=== PATIENT | female | born 1980 | race American Indian/Alaskan Native ===

== ENCOUNTER 2020-08-29 06:01 | Day surgery (SDC) | payer BC, MEDICAID ==
--- NOTE | 2020-08-27 07:46 | History and Physical Report ---
History of Present Illness Date of examination: 08/25/20 History of present illness: Patient has been reassessed/reevaluated. H&P has been reviewed. No interval changes. Patient desires sterilization. Discussed with various methods of contraceptives including abstinence, barrier and hormonal. Discussed oral, implantable, dermal, injectable, intravaginal and intrauterine methods. Patient declined temporary contraceptives. Discuss the permanency of sterilization. High risk of regret and 0.5 to 1% risk of failure. Questions answered Patient understands and desires to proceed. Vital Signs: Patient Profile: 40 Years Old Female Height: 65.6 inches (166.62 cm) Weight: 146 pounds BMI: 23.85 Temp: 97.9 degrees F BP sittin / 80 (left arm) Current Method of Contraception: IUD Date of Last Pap Smear: 07/29/2020 Past History : 3 Term Births: 2 Premature Births: 0 Living Children: 2 Para: 2 Mult. Births: 0 Prev : 0 Aborta: 1 Elect. Ab: 0 Spont. 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 of genital herpes: no Partner hx. 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 Risk Factors: Smoked Tobacco Use: Former smoker Cigarettes: Yes Year quit: 2005 Years Since Last Quit: 16 Smokeless Tobacco Use: Never Passive smoke exposure: no Drug use: no HIV high-risk behavior: no Caffeine use: 2 drinks per day Alcohol use: yes Type: occ Exercise: no Seatbelt use: 100 % PAP Smear History: Date of Last PAP Smear: 07/29/2020 Review of Systems General Denies fever, chills, sweats, anorexia, fatigue, weakness, malaise, weight loss and sleep disorder. Denies vaginal discharge, incontinence, dysuria, hematuria, urinary frequency, amenorrhea, menorrhagia, abnormal vaginal bleeding, pelvic pain, genital sores, decreased libido, painful periods, painful sex, urinary urgency, hot flashes, vaginal dryness, vaginal itching and vaginal odor. CV Denies chest pains, palpitations, syncope, dyspnea on exertion, orthopnea, PND and peripheral edema. Resp Denies cough, dyspnea at rest, excessive sputum, hemoptysis, wheezing and pleurisy. GI Denies nausea, vomiting, diarrhea, constipation, change in bowel habits, abdominal pain, melena, hematochezia, jaundice, gas/bloating, indigestion/heartburn, dysphagia and odynophagia. Breast Denies left breast lump, right breast lump, nipple discharge, bloody discharge from nipple, breast pain, abnormal mammogram and breast enlargement. Psych Denies depression, anxiety, irritability and mood swings. Past History Past Medical History: No medical history Past Surgical History: No surgical history Social history: full code, other (SEE HPI) Family history: other (SEE HPI) Medications and Allergies Allergies Allergy/AdvReac Type Severity Reaction Status Date / Time No Known Allergies Allergy Verified 08/27/20 18:01 Home Medications Medication Instructions Recorded Confirmed Last Taken Type Loratadine [Allergy Relief] 10 mg PO DAILY 08/27/20 08/27/20 Unknown History predniSONE [Deltasone] 10 mg PO QWEEK 08/27/20 08/27/20 Unknown History Review of Systems Constitutional: other (SEE HPI) Exam - Physical Exam Narrative exam: HEENT: normocephalic, no lesions or deformities Skin no ulcers, xanthomas Chest: respiratory effort normal, clear to auscultation CV: regular, normal S1-S2, no murmur, no rub, no gallop Abdomen: soft, non-tender, no masses, bowel sounds normal Neuro: no gross anomalities Extremities: no clubbing, cyanosis, or edema 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 No evidence of cystocele or rectocele. Cervix: normal appearance, no lesions, no discharge IUD string seen Uterus: normal position, midline, mobile Adnexae: no masses or tenderness Rectovaginal: exam defered Assessment and Plan - Patient Problems (1) Encounter for female sterilization procedure Current Visit: No Status: Acute Plan to address problem: Patient desires sterilization.Discuss the permanency of sterilization. High risk of regret and 0.5 to 1% risk of failure. Discussed options of tubal blockage and salpingectomy and it's possible benefit of preventing ovarian cancer and increased risks of bleeding during the procedure. Discuss the risks of the surgery including infection, bleeding possibly heavy enough to require a blood transfusion, possilble damage to bowel, bladder or ureter. Patient understands and desires to proceed with salpingectomy
[2020-08-29] MEDS ORDERED: HYDROmorphone 1 MG/1 ML INJ ONE (07:14)
[2020-08-29] MEDS ORDERED: propofoL 200 MG/20 ML VIAL IV ONE (07:15)
[2020-08-29] MEDS ORDERED: ROCURONIUM 50 MG/5 ML INJ IV ONE (07:15)
[2020-08-29] MEDS ORDERED: LIDOCAINE MPF (2%) 20 MG/1 ML VIAL 5 ML ONE (07:15)
[2020-08-29] MEDS ORDERED: LACTATED RINGERS 1,000 ML ONE ×2 (07:16→08:33)
[2020-08-29] MEDS ORDERED: ONDANSETRON 4 MG/2 ML INJ IV PRN (07:17)
[2020-08-29] MEDS ORDERED: HYDROmorphone 1 MG/1 ML INJ IV PRN ×2 (07:17)
--- NOTE | 2020-08-29 07:17 | Anesthesia Day of Surgery ---
Anesthesia Day of Surgery - Day of Surgery Patient Examined: Yes Patient H&P Reviewed: Yes Patient is NPO: Yes
--- NOTE | 2020-08-29 07:19 | Anesthesia Consultation ---
Anesthesia Consult and Med Hx Date of service: 08/29/20 - Airway Anesthetic Teeth Evaluation: Chipped, Crowns ROM Head & Neck: Adequate Mental/Hyoid Distance: Adequate Mallampati Class: Class I Intubation Access Assessment: Good - Pre-Operative Health Status ASA Pre-Surgery Classification: ASA2 Proposed Anesthetic Plan: General - Pulmonary Hx Smoking: Yes (Hookah) Hx Asthma: No COPD: No Hx Pneumonia: No - Cardiovascular System Hx Hypertension: Yes (with ) Hx Cardia Arrhythmia: Yes (Occasional papitations) - Central Nervous System Hx Neuromuscular Disorder: Yes (Eczema) Hx Seizures: No Hx Psychiatric Problems: No - Endocrine Hx End Stage Renal Disease: No - Other Systems Hx Alcohol Use: Yes (Occas) Hx Cancer: No
[2020-08-29] MEDS ORDERED: BUPIVACAINE/PF (0.5%) 5 MG/1 ML 30 ML VIAL INFILTRATI ONE ×2 (07:22→09:12)
[2020-08-29] MEDS ORDERED: LACTATED RINGERS 1,000 ML IV SCH (07:30)
[2020-08-29] MEDS ORDERED: KETOROLAC 30 MG/1 ML INJ ONE (07:33)
[2020-08-29] MEDS ORDERED: MIDAZOLAM 2 MG/2 ML INJ ONE (07:39)
[2020-08-29] MEDS ORDERED: ONDANSETRON 4 MG/2 ML INJ ONE ×2 (07:39→07:40)
[2020-08-29] MEDS ORDERED: dexAMETHasone 20 MG/5 ML VIAL ONE ×2 (07:39→07:40)
[2020-08-29] MEDS ORDERED: MIDAZOLAM 2 MG/2 ML INJ IV NR (08:00)
[2020-08-29] MEDS ORDERED: GLYCOPYRROLATE 0.4 MG/2 ML INJ ONE (08:15)
[2020-08-29] MEDS ORDERED: NEOSTIGMINE 10MG/10 ML INJ MDV ONE (08:15)
--- NOTE | 2020-08-29 08:51 | Operative Report ---
Operative Report Operative Report: Date of procedure: August 29, 2020 Pre-operative diagnosis: Patient desires permanent sterilization Post-operative diagnosis: Same Procedure name(s): Laparoscopic bilateral salpingectomy and IUD removal Surgeon: Bharat Youssef MD Department Head [employer]: General Anesthesia: General endotracheal EBL: Minimal Complications: None Findings: Patient with uterus approximately 8 weeks in size with normal fallopian tubes bilaterally Specimen(s): Bilateral fallopian tubes Patient was brought in the operating room. General anesthesia was induced without difficulty. She was placed in dorsal lithotomy position. Prepped and draped in usual sterile manner. Her urinary bladder with was emptied with a red rubber catheter. Speculum placed in her vagina the strings were ParaGard were then grasped with Allis clamp and easily removed from uterus intact and then discarded. [email or web address] uterine manipulator was placed for uterine manipulation without difficulty. Attention was then switched to the patient's abdomen. An infra-umbilical incision was made with a scalpel. This incision was spread with a hemostat. A 5 mm trocar was placed in this incision while lifting high the abdominal wall. Intra-abdominal presence was verified directly with the laparoscope. The patient was then insufflated to approximately 3 L of CO2 gas. The patient's findings as noted above. An accessory puncture was made suprapubically. The 8 mm trocar was placed through this incision under direct visualization with no evidence of internal organ damage. Each of the fallopian tube were identified by its fimbriated end. Starting with the right fallopian tube approximately 1 to 2 cm from the cornea LigaSure device was used to cross sectional cut the tube. From this point the ligature device was used to cauterize and cut the mesosalpinx until the fimbriated end was reached detaching the tube. The fallopian tube was then removed through the accessory port attention was then switched to the contralateral tube. Same procedure was performed detaching that tube and removed it through the accessory port. The remaining stump was inspected and found to be hemostatic. At this time all instruments were removed. The patient was de-insufflated. The skin incisions were closed subcuticularly with 4-0 Vicryl. Marcaine was injected into the surgical incisions, for postoperative pain relief. The patient tolerated procedure well. She was awakened in the operating room and accompanied to the recovery room in good condition.
--- NOTE | 2020-08-29 08:54 | Short Stay Summary ---
Short Stay Documentation Date of service: 08/29/20 - History H&P: dictated Past Medical History: No medical history Past Surgical History: No surgical history Social history: full code, other (SEE HPI) - Allergies and Medications Current Medications: Allergies No Known Allergies Allergy (Verified 08/27/20 18:01) Home Medications Medication Instructions Recorded Confirmed Last Taken Type Loratadine [Allergy Relief] 10 mg PO DAILY 08/27/20 08/29/20 08/22/20 09:00 History predniSONE [Deltasone] 10 mg PO QWEEK 08/27/20 08/29/20 08/25/20 09:00 History oxyCODONE /ACETAMINOPHEN [Percocet 1 - 2 tab PO Q6HR PRN #10 tablet 08/29/20 Unknown Rx 5/325 mg] Active Medications Hydromorphone HCl (Hydromorphone 1 Mg/1 Ml Inj) 0.25 mg IV Q10MIN PRN PRN Reason: Pain, Moderate (4-6) Stop: 08/29/20 23:00 Hydromorphone HCl (Hydromorphone 1 Mg/1 Ml Inj) 0.5 mg IV Q10MIN PRN PRN Reason: Pain , Severe (7-10) Stop: 08/29/20 23:00 Lactated Ringer's (Lactated Ringers) 1,000 mls @ 125 mls/hr IV DIRECT AMMY Midazolam HCl (Midazolam 2 Mg/2 Ml Inj) 2 mg IV PREOP NR Stop: 08/29/20 23:59 Ondansetron HCl (Ondansetron 4 Mg/2 Ml Inj) 4 mg IV ONCE PRN PRN Reason: Nausea And Vomiting Stop: 08/29/20 16:00 - Physical exam General appearance: no acute distress HEENT: Atraumatic Lungs: Normal air movement Breasts: deferred Heart: Regular rate Gastrointestinal: normoactive bowel sounds, tenderness, distended (Appropriate. Appropriate post laparoscopy) Female Genitourinary: normal Rectal Exam: deferred Extremities: no ischemia - Brief post op/procedure progress note Date of procedure: 08/29/20 (See dictated operative note for details) Condition: stable - Hospital course Hospital course: Patient was admitted underwent the above him procedure without any complications. Patient will be discharged with follow-up in office in 1-2 weeks for postop check. - Disposition Condition at discharge: Good Disposition: DC-01 TO HOME OR SELFCARE - Discharge Diagnoses (1) Encounter for female sterilization procedure Status: Acute Short Stay Discharge Plan Activity: advance as tolerated Diet: regular Additional Instructions: Patient to call office for any fever, chills, nausea, vomiting or pain not controlled by pain medication. Follow up with: GEOVANNY ROTH DO [Primary Care Provider] - 7 Days Prescriptions: oxyCODONE /ACETAMINOPHEN [Percocet 5/325 mg] 1 - 2 tab PO Q6HR PRN #10 tablet PRN Reason: Pain
--- NOTE | 2020-08-29 09:08 | Post Anesthesia Evaluation ---
- Post Anesthesia Evaluation Patient Participated: Yes Airway Patent: Yes Stable Respiratory Function: Yes Nausea/Vomiting: No Temp > 96.8F: Yes Pain Manageable: Yes Adequeate Hydration: Yes Anesthesia Complications: No Block Receding Appropriately: Not Applicable Patient on Ventilator: No
[2020-08-29] MEDS ORDERED: oxyCODONE /ACETAMINOPHEN 5-325MG TAB PO NR (09:30)
[2020-08-29 09:57] VITALS: BP 125/72
== END 2020-08-29 10:10 | disposition home or self-care (01) ==
LOC: OR 06:01
PROVIDERS: ATTEND Obstetrics & Gynecology
DX: Z30.2 Encounter for sterilization (principal); Z30.432 Encounter for removal of intrauterine contraceptive device; F17.210 Nicotine dependence, cigarettes, uncomplicated; I42.9 Cardiomyopathy, unspecified; I10 Essential (primary) hypertension; K21.9 Gastro-esophageal reflux disease without esophagitis; Z72.89 Other problems related to lifestyle; Z79.899 Other long term (current) drug therapy; Z98.890 Other specified postprocedural states
CPT/HCPCS: 58301; 58670; 81025; 88302; C1765; J1100; J1170; J1885; J2250; J2405; J2704; J2710; J7120